=== PATIENT | male | born 1950 | race Caucasian/White ===

== ENCOUNTER → 2020-06-03 | Outpatient (CLI) | payer MEDICARE ==
[~2020-06-03] MED LIST: ACTOS30 MG PO; ASPIR 8181 MG PO; CALCIUM CARBON600 M1 PO; CYANOCOBAL1000 MCG/1 INJ; DOXYCYCLINE HY100 MG PO; DOXYCYCLINE MO100 MG PO; ELIQUIS 5 MG TAB5 MG PO; GLUCOPHAGE 500500 MG PO; HYDROCODON-ACE1 EAC4 PO; LEVOFLOXACIN500 MG PO; LIPITOR TAB 2020 MG PO; LISINOPRIL10 MG PO; LISINOPRIL20 MG PO; LOPRESSOR 25 MG25 MG PO; MELOXICAM7.5 MG PO; METHOCARBAMOL500 MG PO; NEURONTIN 400400 MG PO; NEURONTIN400 MG PO; NORVASC 5 MG TAB5 MG PO; OXYCODONE HCL10 MG PO; PROTONIX40 MG PO; ROBAXIN-750750 MG PO; TRAZODONE HCL100 MG PO; ZANAFLEX4 MG PO
== END ==
LOC: EXRD 08:50
DX: M54.6 Pain in thoracic spine (principal); M51.34 Other intervertebral disc degeneration, thoracic region; S22.059A Unspecified fracture of T5-T6 vertebra, initial encounter for closed fracture; Z98.890 Other specified postprocedural states
CPT/HCPCS: 72070

== ENCOUNTER → 2020-06-13 | Outpatient (CLI) | payer MEDICARE | LOC: CT 09:34 | DX: C15.9 Malignant neoplasm of esophagus, unspecified (principal); C16.0 Malignant neoplasm of cardia; D51.8 Other vitamin B12 deficiency anemias; D50.0 Iron deficiency anemia secondary to blood loss (chronic); J18.1 Lobar pneumonia, unspecified organism | CPT/HCPCS: 36415; 71260; 82565; 84520; Q9967 ==

== ENCOUNTER 2020-07-27 09:13 | Emergency (ER) | payer MEDICARE ==
[~2020-07-27 09:13] MED LIST changes: -CALCIUM CARBON600 M1 PO; -CYANOCOBAL1000 MCG/1 INJ; -DOXYCYCLINE MO100 MG PO; -GLUCOPHAGE 500500 MG PO; -HYDROCODON-ACE1 EAC4 PO; -LEVOFLOXACIN500 MG PO; -LISINOPRIL20 MG PO; -LOPRESSOR 25 MG25 MG PO; -METHOCARBAMOL500 MG PO; -NEURONTIN400 MG PO; -PROTONIX40 MG PO; -TRAZODONE HCL100 MG PO
[2020-07-27 11:17] LABS: HEMOGLOBIN 14.4 gm/dl (14.0-17.5); RED BLOOD COUNT 4.64 M/UL (4.20-5.50); WHITE BLOOD COUNT 7.2 K/UL (4.5-11.0)
[2020-07-27 11:42] LABS: BUN/CREATININE RATIO 27 (0-10)
[2020-07-27] MEDS ORDERED: HYDROCODON-ACE1 EAC4 PO (13:32)
[2020-10-12] MEDS ORDERED: DOXYCYCLINE MO100 MG PO (07:31)
[2020-10-12] MEDS ORDERED: TRAZODONE HCL100 MG PO (07:32)
== END 2020-07-27 15:12 | disposition home or self-care (01) ==
LOC: ER1 09:13
PROVIDERS: Emergency Medicine
DX: S22.41XA Multiple fractures of ribs, right side, initial encounter for closed fracture (principal); C15.9 Malignant neoplasm of esophagus, unspecified; F17.200 Nicotine dependence, unspecified, uncomplicated; X58.XXXA Exposure to other specified factors, initial encounter
CPT/HCPCS: 71111; 80053; 82550; 82553; 83874; 84484; 85025; 85379; 93005; 99284; J7040; Q9967

== ENCOUNTER 2020-08-22 12:48 | Inpatient (IN) | payer MEDICARE ==
[~2020-08-22] VITALS: Ht 180.3 cm; Wt 75.3 kg
[~2020-08-22 12:48] MED LIST changes: +HYDROCODON-ACE1 EAC4 PO
[2020-08-22 15:25] LABS: HEMOGLOBIN 12.8 gm/dl (14.0-17.5); RED BLOOD COUNT 4.01 M/UL (4.20-5.50); WHITE BLOOD COUNT 7.1 K/UL (4.5-11.0)
[2020-08-22 23:01] LABS: BORDETELLA PARAPERTUSSIS Not Detected (Not Detectd); BORDETELLA PERTUSSIS Not Detected (Not Detectd); CHLAMYDIA PNEUMONIAE Not Detected (Not Detectd); CORONAVIRUS HKU1 Not Detected (Not Detectd); CORONAVIRUS NL63 Not Detected (Not Detectd); CORONAVIRUS OC43 Not Detected (Not Detectd); CORONOAVIRUS 229E Not Detected (Not Detectd); HUMAN METAPNEUMOVIRUS Not Detected (Not Detectd); HUMAN RHINOVIRUS/ENTEROVIRUS Not Detected (Not Detectd); INFLUENZA A Not Detected (Not Detectd); INFLUENZA B Not Detected (Not Detectd); MYCOPLASMA PNEUMONIAE Not Detected (Not Detectd); PARAINFLUENZA VIRUS 1 Not Detected (Not Detectd); PARAINFLUENZA VIRUS 2 Not Detected (Not Detectd); PARAINFLUENZA VIRUS 3 Not Detected (Not Detectd); PARAINFLUENZA VIRUS 4 Not Detected (Not Detectd); RESPIRATORY SYNCYTIAL VIRUS Not Detected (Not Detectd)
[2020-08-23 00:02] LABS: SARS-CoV-2 NOT DETECTED (Not Detectd)
[2020-08-23 04:08] LABS: HEMOGLOBIN 13.2 gm/dl (14.0-17.5); RED BLOOD COUNT 4.06 M/UL (4.20-5.50); WHITE BLOOD COUNT 8.8 K/UL (4.5-11.0)
[2020-08-23 04:42] LABS: ADENOVIRUS F 40/41 Not Detected (Negative); ASTROVIRUS Not Detected (Negative); CAMPYLOBACTER Not Detected (Negative); CLOSTRIDIUM DIFFICILE TOX A/B Not Detected (Negative); CRYPTOSPORIDIUM Not Detected (Negative); E.COLI 0157 Not Detected (Negative); ENTAMOEBA HISTOLYTICA Not Detected (Negative); ENTEROAGGREGATIVE E.COLI (EAEC Not Detected (Negative); ENTEROPATHOGENIC E.COLI (EPEC) Not Detected (Negative); ENTEROTOXIGENIC E.COLI (ETEC) Not Detected (Negative); GIARDIA LAMBLIA Not Detected (Negative); NOROVIRUS GI/GII Not Detected (Negative); PLESIOMONAS SHIGELLOIDES Not Detected (Negative); ROTOVIRUS A Not Detected (Negative); SALMONELLA Not Detected (Negative); SAPOVIRUS Not Detected (Negative); SHIG/ENTEROINVAS.ECOLI (EIEC) Not Detected (Negative); SHIGA-LIK TOX.PRO.E.COLI (STEC Not Detected (Negative); VIBRIO Not Detected (Negative); VIBRIO CHOLERAE Not Detected (Negative); YERSINIA ENTEROCOLITICA Not Detected (Negative)
[2020-08-23] MEDS ORDERED: CYANOCOBAL1000 MCG/1 INJ (06:45)
[2020-08-23] MEDS ORDERED: LISINOPRIL20 MG PO (06:47)
[2020-08-23] MEDS ORDERED: CALCIUM CARBON600 M1 PO (06:47)
[2020-08-23] MEDS ORDERED: GLUCOPHAGE 500500 MG PO (09:17)
[2020-08-23] MEDS ORDERED: PROTONIX40 MG PO (09:17)
[2020-08-23] MEDS ORDERED: NEURONTIN400 MG PO (09:17)
[2020-08-23] MEDS ORDERED: METHOCARBAMOL500 MG PO (09:18)
[2020-08-24 05:07] LABS: HEMOGLOBIN 11.7 gm/dl (14.0-17.5); RED BLOOD COUNT 3.66 M/UL (4.20-5.50)
[2020-08-24 05:32] LABS: BUN/CREATININE RATIO 34 (0-10)
[2020-08-25 02:51] LABS: HEMOGLOBIN 11.1 gm/dl (14.0-17.5); RED BLOOD COUNT 3.47 M/UL (4.20-5.50); WHITE BLOOD COUNT 10.6 K/UL (4.5-11.0)
[2020-08-25 03:12] LABS: BUN/CREATININE RATIO 28 (0-10)
[2020-08-25] MEDS ORDERED: LOPRESSOR 25 MG25 MG PO (11:08)
[2020-08-25] MEDS ORDERED: ELIQUIS 5 MG TAB5 MG PO (11:08)
[2020-08-25] MEDS ORDERED: LEVOFLOXACIN500 MG PO (11:08)
[2020-10-12] MEDS ORDERED: DOXYCYCLINE MO100 MG PO (07:31)
[2020-10-12] MEDS ORDERED: TRAZODONE HCL100 MG PO (07:32)
== END 2020-08-25 13:34 | disposition home or self-care (01) | DRG 193 ==
LOC: ER1 12:48 → PROG CARE 22:16 → CDU 22:16 → PROG CARE 08-23 08:38
PROVIDERS: Family Medicine; Internal Medicine; Physician Assistant Medical; ADMIT Internal Medicine Infectious Disease
PROC: B24BZZ4 Ultrasonography of Heart with Aorta, Transesophageal (ICD-10-PCS; principal; 2020-08-24)
DX: J12.9 Viral pneumonia, unspecified (principal); N17.0 Acute kidney failure with tubular necrosis; J96.01 Acute respiratory failure with hypoxia; E87.2 Acidosis; I47.2 Ventricular tachycardia; Z20.822 Contact with and (suspected) exposure to COVID-19; E86.0 Dehydration; E83.42 Hypomagnesemia; E87.6 Hypokalemia; I08.1 Rheumatic disorders of both mitral and tricuspid valves; F17.210 Nicotine dependence, cigarettes, uncomplicated; E11.9 Type 2 diabetes mellitus without complications; I48.0 Paroxysmal atrial fibrillation; Z79.01 Long term (current) use of anticoagulants; Z85.01 Personal history of malignant neoplasm of esophagus; Z79.82 Long term (current) use of aspirin; Z86.711 Personal history of pulmonary embolism; Z80.8 Family history of malignant neoplasm of other organs or systems; Z79.4 Long term (current) use of insulin; Z86.718 Personal history of other venous thrombosis and embolism; Z90.49 Acquired absence of other specified parts of digestive tract
CPT/HCPCS: ECHO; 0240U; 36415; 71045; 80048; 80053; 82270; 82550; 82553; 82962; 83605; 83735; 83874; 83880; 84439; 84443; 84484; 85025; 85610; 86140; 87040; 87278; 87507; 87633; 89050; 93005; 93306; 96374; 99284; J0456; J1644; J2543; J3370; J3475; J7030; J7070

== ENCOUNTER → 2020-09-21 | Outpatient (CLI) | payer MEDICARE ==
[~2020-09-21] MED LIST changes: +CALCIUM CARBON600 M1 PO; +CYANOCOBAL1000 MCG/1 INJ; +DOXYCYCLINE MO100 MG PO; +GLUCOPHAGE 500500 MG PO; +LEVOFLOXACIN500 MG PO; +LISINOPRIL20 MG PO; +LOPRESSOR 25 MG25 MG PO; +METHOCARBAMOL500 MG PO; +NEURONTIN400 MG PO; +PROTONIX40 MG PO; +TRAZODONE HCL100 MG PO
== END ==
LOC: EXRD 08:04
DX: J18.9 Pneumonia, unspecified organism (principal)
CPT/HCPCS: 71046

== ENCOUNTER → 2020-10-11 | Outpatient (CLI) | payer MEDICARE | LOC: CT 13:44 | DX: J18.9 Pneumonia, unspecified organism (principal); R63.0 Anorexia; R63.4 Abnormal weight loss; R93.89 Abnormal findings on diagnostic imaging of other specified body structures; Z85.01 Personal history of malignant neoplasm of esophagus; K80.20 Calculus of gallbladder without cholecystitis without obstruction | CPT/HCPCS: 71250 ==

== ENCOUNTER → 2020-10-12 | Day surgery (SDC) | payer MEDICARE | END | disposition home or self-care (01) | LOC: OR 06:30 | DX: K29.50 Unspecified chronic gastritis without bleeding (principal); K31.89 Other diseases of stomach and duodenum; R13.10 Dysphagia, unspecified; K25.9 Gastric ulcer, unspecified as acute or chronic, without hemorrhage or perforation; R63.4 Abnormal weight loss; R63.0 Anorexia; N40.0 Benign prostatic hyperplasia without lower urinary tract symptoms; K22.10 Ulcer of esophagus without bleeding; K21.9 Gastro-esophageal reflux disease without esophagitis; I50.9 Heart failure, unspecified; E11.9 Type 2 diabetes mellitus without complications; I48.91 Unspecified atrial fibrillation; J30.9 Allergic rhinitis, unspecified; D64.9 Anemia, unspecified; M19.90 Unspecified osteoarthritis, unspecified site; E78.5 Hyperlipidemia, unspecified; G47.00 Insomnia, unspecified; E53.8 Deficiency of other specified B group vitamins; F17.210 Nicotine dependence, cigarettes, uncomplicated; Z79.899 Other long term (current) drug therapy; Z79.01 Long term (current) use of anticoagulants; Z20.822 Contact with and (suspected) exposure to COVID-19; Z98.890 Other specified postprocedural states; Z87.01 Personal history of pneumonia (recurrent); Z98.52 Vasectomy status | CPT/HCPCS: 82962; 88342; J2704; J7120 ==

== ENCOUNTER → 2020-12-06 | Outpatient (CLI) | payer MEDICARE | LOC: LAB 11:17 | DX: I48.91 Unspecified atrial fibrillation (principal) | CPT/HCPCS: 36415; 85610 ==

== ENCOUNTER → 2020-12-09 | Outpatient (CLI) | payer MEDICARE | LOC: LAB 10:42 | DX: Z51.81 Encounter for therapeutic drug level monitoring (principal); I48.0 Paroxysmal atrial fibrillation; R79.1 Abnormal coagulation profile | CPT/HCPCS: 36415; 85610 ==

== ENCOUNTER 2021-01-09 08:10 | Emergency (ER) | payer MEDICARE ==
[2021-01-09] MEDS ORDERED: LIDOCAINE PAIN1 EACH TP (10:09)
== END 2021-01-09 10:52 | disposition home or self-care (01) ==
LOC: ER1 08:10
DX: S20.212A Contusion of left front wall of thorax, initial encounter (principal); E11.9 Type 2 diabetes mellitus without complications; I10 Essential (primary) hypertension; R10.9 Unspecified abdominal pain; F17.200 Nicotine dependence, unspecified, uncomplicated; Z85.01 Personal history of malignant neoplasm of esophagus; W01.0XXA Fall on same level from slipping, tripping and stumbling without subsequent striking against object, initial encounter; Y92.009 Unspecified place in unspecified non-institutional (private) residence as the place of occurrence of the external cause
CPT/HCPCS: 71101; 72100; 99284

== ENCOUNTER → 2021-01-10 | Outpatient (CLI) | payer MEDICARE ==
[~2021-01-10] MED LIST changes: +LIDOCAINE PAIN1 EACH TP
== END ==
LOC: EXRD 08:33
DX: Z13.6 Encounter for screening for cardiovascular disorders (principal)
CPT/HCPCS: 76706

== ENCOUNTER → 2021-03-02 | Outpatient (CLI) | payer MEDICARE | LOC: RAD 08:30 | DX: K21.00 Gastro-esophageal reflux disease with esophagitis, without bleeding (principal) | CPT/HCPCS: 74230; 92611-GN ==

== ENCOUNTER → 2021-04-13 | Outpatient (CLI) | payer MEDICARE | LOC: CT 04-06 11:00 | DX: C15.5 Malignant neoplasm of lower third of esophagus (principal); D51.8 Other vitamin B12 deficiency anemias; D50.0 Iron deficiency anemia secondary to blood loss (chronic); K80.20 Calculus of gallbladder without cholecystitis without obstruction | CPT/HCPCS: 36415; 71260; 82565; 84520; Q9967 ==

== ENCOUNTER → 2021-05-03 | Outpatient (CLI) | payer MEDICARE | LOC: EXRD 08:10 | DX: R07.9 Chest pain, unspecified (principal); M54.6 Pain in thoracic spine; R91.1 Solitary pulmonary nodule; S22.000A Wedge compression fracture of unspecified thoracic vertebra, initial encounter for closed fracture | CPT/HCPCS: 71101; 72070 ==

== ENCOUNTER → 2021-05-18 | Outpatient (CLI) | payer MEDICARE | LOC: KOH-I 10:35 | DX: M43.9 Deforming dorsopathy, unspecified (principal); W19.XXXA Unspecified fall, initial encounter; M51.34 Other intervertebral disc degeneration, thoracic region | CPT/HCPCS: 72128 ==

== ENCOUNTER 2021-06-01 14:47 | Emergency (ER) | payer MEDICARE ==
[2021-06-01] MEDS ORDERED: BACTROBAN OINT22 GM EXT (15:26)
== END 2021-06-01 16:00 | disposition home or self-care (01) ==
LOC: ER1 14:47
DX: T22.20XA Burn of second degree of shoulder and upper limb, except wrist and hand, unspecified site, initial encounter (principal); T31.0 Burns involving less than 10% of body surface; Z23 Encounter for immunization; E10.9 Type 1 diabetes mellitus without complications; I10 Essential (primary) hypertension; F17.210 Nicotine dependence, cigarettes, uncomplicated; X08.8XXA Exposure to other specified smoke, fire and flames, initial encounter; Y92.009 Unspecified place in unspecified non-institutional (private) residence as the place of occurrence of the external cause
CPT/HCPCS: 90471; 90715; 99283

== ENCOUNTER → 2021-07-18 | Outpatient (CLI) | payer MEDICARE ==
[~2021-07-18] MED LIST changes: +BACTROBAN OINT22 GM EXT
== END ==
LOC: KOH-I 09:21
DX: M54.6 Pain in thoracic spine (principal); M48.54XA Collapsed vertebra, not elsewhere classified, thoracic region, initial encounter for fracture
CPT/HCPCS: 72146

== ENCOUNTER 2021-08-11 09:41 | Emergency (ER) | payer MEDICARE ==
[2021-08-11] MEDS ORDERED: CLINDAMYCIN HC300 MG PO (10:33)
== END 2021-08-11 10:44 | disposition home or self-care (01) ==
LOC: ER1 09:41
DX: L03.114 Cellulitis of left upper limb (principal); I48.91 Unspecified atrial fibrillation; F17.200 Nicotine dependence, unspecified, uncomplicated; Z85.01 Personal history of malignant neoplasm of esophagus
CPT/HCPCS: 90471; 90715; 99283

== ENCOUNTER → 2021-08-14 | Outpatient (CLI) | payer MEDICARE ==
[~2021-08-14] MED LIST changes: +CLINDAMYCIN HC300 MG PO
== END ==
LOC: KOH-I 09:45
DX: C15.5 Malignant neoplasm of lower third of esophagus (principal); R91.8 Other nonspecific abnormal finding of lung field
CPT/HCPCS: 71250

== ENCOUNTER → 2021-10-30 | Outpatient (CLI) | payer MEDICARE | LOC: EXRD 10:22 | DX: J18.9 Pneumonia, unspecified organism (principal) | CPT/HCPCS: 71046 ==

== ENCOUNTER → 2021-12-18 | Outpatient (CLI) | payer MEDICARE ==
[2021-12-18 14:58] LABS: HEMOGLOBIN 13.4 gm/dl (14.0-17.5); RED BLOOD COUNT 4.4 M/UL (4.20-5.50); WHITE BLOOD COUNT 7.8 K/UL (4.5-11.0)
[2021-12-18 15:35] LABS: BUN/CREATININE RATIO 17 (0-10)
[2021-12-19 08:13] LABS: VITAMIN D, 25-HYDROXY 34.3 ng/mL (30.0-100.0)
[2021-12-19 14:14] LABS: A/G RATIO 0.8 (0.7-1.7); ALBUMIN 3.1 g/dL (2.9-4.4); ALPHA-1-GLOBULIN 0.3 g/dL (0.0-0.4); ALPHA-2-GLOBULIN 0.9 g/dL (0.4-1.0); BETA GLOBULIN 1.1 g/dL (0.7-1.3); GAMMA GLOBULIN 1.3 g/dL (0.4-1.8); GLOBULIN, TOTAL 3.7 g/dL (2.2-3.9); M-SPIKE Not Observed g/dL (Not Observed); PROTEIN, TOTAL, SERUM 6.8 g/dL (6.0-8.5)
== END ==
LOC: LAB 14:18
PROVIDERS: Internal Medicine
DX: C15.9 Malignant neoplasm of esophagus, unspecified (principal); E55.9 Vitamin D deficiency, unspecified; M81.0 Age-related osteoporosis without current pathological fracture; R53.82 Chronic fatigue, unspecified; Z86.711 Personal history of pulmonary embolism
CPT/HCPCS: 80053; 83970; 84155; 84165; 84443; 85025; 85652

== ENCOUNTER → 2021-12-19 | Outpatient (CLI) | payer MEDICARE | LOC: HEART 5 09:58 | DX: R06.02 Shortness of breath (principal) | CPT/HCPCS: 71046; 94060; 94729 ==